=== PATIENT | female | born 1940 | race Caucasian/White ===

== ENCOUNTER → 2016-12-04 | Outpatient (CLI) | payer MEDICARE, OTHER ==
[~2016-12-04] MED LIST: ASPIR 8181 MG PO; CALCIUM500 MG PO; CARAFATE DPS1 GM PO; CIPRO DPS500 MG PO; FLAGYL-DPS500 MG PO; HYDROCHLOROTH12.5 M1 PO; LIPITOR DPS20 MG PO; MULTI VITAMIN1 EACH PO; NORVASC DPS10 MG PO; OMEGA-3 DPS1000 MG PO; PRILOSEC40 MG PO; SURFAK DPS240 MG PO; VITAMIN D2000 UNIT PO
== END | disposition home or self-care (01) ==
LOC: RAD.S 10:11
DX: Z12.31 Encounter for screening mammogram for malignant neoplasm of breast (principal)